=== PATIENT | female | born 2000 | race Two or more races ===

== ENCOUNTER 2023-11-06 21:46 | Emergency (ER) | payer OTHER ==
[2023-11-06 21:51] VITALS: BP 110/71; PULSE 85; RESP 18; TEMP 98.3; BMI 19.5
[2023-11-06] MEDS ORDERED: FLUORESCEIN NA 1 EA STRIP ONE (23:02)
[2023-11-06] MEDS: FLUORESCEIN NA 1 EA STRIP OS ONE (23:08)
[2023-11-06] MEDS: TETRACAINE 0.5% OPHTH SOLN 2 ML BOTTLE OS ONE (23:08)
== END 2023-11-06 23:26 | disposition home or self-care (01) ==
LOC: JERFT 21:46
DX: H57.12 Ocular pain, left eye (principal); H57.89 Other specified disorders of eye and adnexa; S05.02XA Injury of conjunctiva and corneal abrasion without foreign body, left eye, initial encounter; X58.XXXA Exposure to other specified factors, initial encounter
CPT/HCPCS: 99283-25

== ENCOUNTER 2023-11-19 22:00 | Emergency (ER) | payer OTHER ==
[2023-11-19 22:10] VITALS: BP 107/62; PULSE 98; RESP 20; TEMP 97.5; BMI 21.4
[2023-11-19] MEDS ORDERED: IBUPROFEN 600 MG TABLET (FP) PO ONE (22:34)
[2023-11-19] MEDS: IBUPROFEN 600 MG TABLET (FP) PO ONE (22:35)
== END 2023-11-19 22:45 | disposition home or self-care (01) ==
LOC: JERFT 22:00 → JER 22:00 → JERFT 22:45
DX: S02.2XXA Fracture of nasal bones, initial encounter for closed fracture (principal); Y04.0XXA Assault by unarmed brawl or fight, initial encounter
CPT/HCPCS: 70150-TC-FY; 99283-25